=== PATIENT | female | born 1980 | race American Indian/Alaskan Native ===

== ENCOUNTER 2021-02-08 03:08 | Emergency (ER) | payer MEDICAID, OTHER ==
[~2021-02-08] VITALS: Ht 162.6 cm; Wt 72.7 kg
--- NOTE | 2021-02-08 03:41 | NUR ---
PRINCESS Sterling wrapped finger tightly for about 25 min. Went to check if wound is still open and bleeding and it was. MD notified, assessing patient now.
[2021-02-08] MEDS ORDERED: TETanus/Pertussis (Acell)/Diphther VAC/PF (Tdap-Adult) 0.5ml syringe IMVAC ONE (04:40)
[2021-02-08] MEDS ORDERED: clindamycin 150mg capsule PO ONE (05:30)
[2021-02-08] MEDS ORDERED: CLIN-97 PO (05:32)
[2021-02-08] MEDS ORDERED: HYDR-3965 PO (05:33)
[2021-02-08 06:08] VITALS: BP 124/84
== END 2021-02-08 06:10 | disposition home or self-care (01) ==
LOC: ER 03:09
DX: S61.231A Puncture wound without foreign body of left index finger without damage to nail, initial encounter (principal); Z88.0 Allergy status to penicillin; Z88.5 Allergy status to narcotic agent; W22.8XXA Striking against or struck by other objects, initial encounter; Y93.89 Activity, other specified; Y92.89 Other specified places as the place of occurrence of the external cause; Y99.8 Other external cause status
CPT/HCPCS: 73130; 90471; 90715; 99283